=== PATIENT | male | born 1990 | race Caucasian/White ===

== ENCOUNTER 2017-04-09 08:42 | Emergency (ER) | payer MEDICAID ==
[~2017-04-09] VITALS: Ht 185.4 cm; Wt 80.0 kg
[2017-04-09] MEDS ORDERED: SODIUM CHLORIDE FLUSH 10ML SYR IVF ONE (09:00)
[2017-04-09 09:30] LABS: HEMATOCRIT 43.2 % (39.2-51.8); HEMOGLOBIN 14.5 g/dL (13.7-18.0); WHITE BLOOD COUNT 3.8 x10^3/uL (3.4-10)
[2017-04-09 09:34] LABS: BLOOD UREA NITROGEN 13 mg/dL (7-18)
[2017-04-09 11:35] VITALS: BP 101/47
== END 2017-04-09 11:37 | disposition home or self-care (01) ==
LOC: ED 09:08
DX: T40.1X1A Poisoning by heroin, accidental (unintentional), initial encounter (principal); Y92.9 Unspecified place or not applicable
CPT/HCPCS: 36415; 80048; 80076; 82040; 85025; 99284

== ENCOUNTER 2019-07-08 12:16 | Emergency (ER) | payer MEDICAID ==
[~2019-07-08] VITALS: Ht 185.4 cm; Wt 70.2 kg
--- NOTE | 2019-07-08 12:35 | NUR ---
FIRST CONTACT WITH PT. PT USED IV HEROIN IN LEFT UPPER AC THIS AM. IMMEDIATELY FELT LEFT HAND SWELL AND IT IS NOW TINGLING. LEFT HAND NOTED TO BE SLIGHTLY SWOLLEN. 2+ RADIAL PULSE. PT'S AOX4. RESPS EVEN AND UNLABORED.
[2019-07-08] MEDS ORDERED: NALOXONE 0.4 MG/ML, 1ML IVPush PRN (13:00)
[2019-07-08] MEDS ORDERED: SODIUM CHLORIDE 0.9% 1,000 ML IV ONE (13:00)
[2019-07-08 13:17] LABS: BASOPHILS # (AUTO) 0.03 x10^3/uL (0-0.1); BASOPHILS % (AUTO) 0 % (0-1); EOSINOPHILS # (AUTO) 0.08 x10^3/uL (0-0.4); EOSINOPHILS % (AUTO) 1 % (1-7); LYMPHOCYTES # (AUTO) 2.02 x10^3/uL (1-3.4); LYMPHOCYTES % (AUTO) 22 % (22-44); MD NO; MEAN CORPUSCULAR VOLUME 90.9 fL (81-97); MEAN PLATELET VOLUME 8.2 fL (7.4-10.4); MONOCYTES # (AUTO) 0.39 x10^3/uL (0.2-0.8); MONOCYTES % (AUTO) 4 % (2-9); NEUTROPHILS # (AUTO) 6.89 x10^3/uL (1.8-6.8); NEUTROPHILS % (AUTO) 73 % (42-75); PLATELET COUNT 241 x10^3/uL (130-400); RED BLOOD COUNT 4.55 x10^6/uL (4.38-5.82); RED CELL DISTRIBUTION WIDTH 13.9 % (9.4-14.8)
[2019-07-08 13:26] LABS: CALCIUM 9.4 mg/dL (8.5-10.1); CHLORIDE 105 mmol/L (98-107); CREATININE 0.79 mg/dL (0.7-1.3)
[2019-07-08 13:30] LABS: CREATINE KINASE, TOTAL 149 U/L (39-308)
--- NOTE | 2019-07-08 13:33 | NUR ---
PT BROUGHT FROM [facility], REPORT FROM JAME. PT C/O PAIN TO LEFT HAND. PT FALLS ASLEEP MID SENTENCE WHEN ANSWERING QUESTIONS. REPORTS TAKING "A SMALLER DOSE THAN USUAL" OF HEROINE TODAY FROM A DEALER HE IS NOT FAMILIAR WITH. PT SLEEPING ON NEPTALI BYERS NADN.
[2019-07-08 13:35] LABS: ANION GAP 3 mmol/L (5-15)
--- NOTE | 2019-07-08 13:43 | NUR ---
PT REFUSING IV AND ALL MEDICATIONS AT THIS TIME.
[2019-07-08 14:48] VITALS: BP 93/55
--- NOTE | 2019-07-08 15:00 | NUR ---
PT IN ROOM GETTING DRESSED AND PUTTING ON BACKPACK. REMINDED PT THAT HE NEEDED TO WAIT FOR PA TO DISCHARGE HIM. PT REFUSING TO ANSWER. ASKED PT MULTIPLE TIMES TO WAIT FOR DISCHARGE PAPERWORK. PT STATES "I'VE GOT TO GO". PT AMBULATED WITH STEADY GAIT TO EXIT, PT REFUSING TO RETURN TO ROOM. PA AWARE.
== END 2019-07-08 15:33 | disposition left against medical advice (07) ==
LOC: ED 15:29
DX: M79.632 Pain in left forearm (principal); M25.532 Pain in left wrist; M79.642 Pain in left hand; F11.10 Opioid abuse, uncomplicated
CPT/HCPCS: 36415; 80048; 82550; 85025; 99284